=== PATIENT | female | born 1985 ===

== ENCOUNTER 2017-09-01 14:26 | Emergency (ER) | payer OTHER, MEDICAID ==
[2017-09-01 14:35] VITALS: BP 124/67; PULSE 82; RESP 18; TEMP 98; O2SAT 98
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
== END 2017-09-01 16:06 | disposition home or self-care (01) ==
LOC: C.ER 14:26
DX: S20.212D Contusion of left front wall of thorax, subsequent encounter (principal); V89.2XXD Person injured in unspecified motor-vehicle accident, traffic, subsequent encounter
CPT/HCPCS: 96372; 99284; J1885